=== PATIENT | male | born 1950 | race African-American/Black ===

== ENCOUNTER 2018-08-26 06:33 | Emergency (ER) | payer MEDICARE, OTHER ==
[2018-08-26] MEDS: FAMOTIDINE 20 MG TAB PO (07:01)
[2018-08-26] MEDS: DIPHENHYDRAMINE 25 MG CAP PO (07:01)
[2018-08-26] MEDS: predniSONE 20 MG TAB PO (07:01)
== END 2018-08-26 07:34 | disposition home or self-care (01) ==
LOC: FTE 06:33
DX: H02.843 Edema of right eye, unspecified eyelid (principal)
CPT/HCPCS: 99283